=== PATIENT | female | born 1950 | race Caucasian/White ===

== ENCOUNTER 2018-05-18 16:37 | Inpatient (IN) | payer OTHER ==
[~2018-05-18] VITALS: Ht 162.6 cm; Wt 50.8 kg
[2018-05-18] MEDS ORDERED: CARV3.1242 PO (16:41)
[2018-05-18] MEDS ORDERED: SODIUM CHLORIDE 0.9% 1000ML BAG (SEPSIS BOLUS) IV ONE (17:15)
[2018-05-18 18:48] LABS: CLARITY URINE CLOUDY (CLEAR); COLOR URINE DARK YELLOW (YELLOW); KETONES URINE 3+ (NEGATIVE); LEUKOCYTE ESTERASE URINE 1+ (NEGATIVE); NITRITE URINE POSITIVE (NEGATIVE); OCCULT BLOOD URINE NEGATIVE (NEGATIVE); PH URINE 5.5 (4.5-8.0); PROTEIN URINE TRACE (NEGATIVE); SPECIFIC GRAVITY URINE 1.023 (1.005-1.030)
[2018-05-18 18:49] LABS: INR 1.2; PROTHROMBIN TIME 11.6 sec (9.1-11.1)
[2018-05-18 18:52] LABS: HEMOGLOBIN. 13.4 g/dL (12.0-16.0); MEAN CORPUSCULAR HEMOGLOBIN 29.8 pg (28.0-32.0); PLATELET 241 x1000/uL (130-400); RED BLOOD CELL COUNT 4.51 mill/uL (4.2-5.4); RED CELL DISTRIBUTION WIDTH 16.8 % (11.6-14.6)
[2018-05-18 18:56] LABS: CHLORIDE 104 mEq/L (98-107)
[2018-05-18] MEDS ORDERED: CEFTRIAXONE 1 G PREMIX 50 ML IV ONE (19:00)
[2018-05-18 19:48] LABS: PLATELET ESTIMATE NORMAL
[2018-05-18 22:00] VITALS: BP 125/79
[2018-05-18] MEDS ORDERED: SODIUM CHLORIDE 0.9% 1,000 ML IV SCH (23:12)
[2018-05-18] MEDS ORDERED: ACETAMINOPHEN 325MG TABLET PO PRN (23:15)
[2018-05-18] MEDS ORDERED: CEFTRIAXONE 1,000 MG in DEXTROSE 5% WATER 50 ML IV SCH (23:15)
[2018-05-18] MEDS ORDERED: LORAZEPAM 2MG/ML CPJ IV PRN (23:15)
[2018-05-18] MEDS ORDERED: ONDANSETRON HCL 4MG/2ML INJ IV PRN (23:15)
[2018-05-18] MEDS ORDERED: HYDROMORPHONE HCL/PF 2MG/ML CPJ IV PRN (23:15)
[2018-05-18] MEDS ORDERED: ENOXAPARIN 40MG/0.4ML SYR SUBCUT SCH (23:30)
[2018-05-19] VITALS: BP 106/69
[2018-05-19] MEDS ORDERED: LEVOFLOXACIN 500MG PREMIX 100 ML IV NR (01:00)
[2018-05-19 04:00] VITALS: BP 124/80
[2018-05-19 08:00] VITALS: BP 143/89
[2018-05-19 12:00] VITALS: BP 122/79
[2018-05-19 13:35] LABS: BASOPHILS % 0.9 % (0.0-2.0); EOSINOPHILS % 0.6 % (0.0-5.0); HEMATOCRIT. 36.8 % (36.0-48.0); HEMOGLOBIN. 12.1 g/dL (12.0-16.0); LYMPHOCYTES % 15.5 % (20.0-50.0); MEAN CORPUSCULAR HEMOGLOBIN 30.3 pg (28.0-32.0); MEAN PLATELET VOLUME 9.4 fl (7.4-10.4); MONOCYTES % 14.7 % (2.0-8.0); NEUTROPHILS % 68.3 % (40.0-76.0); PLATELET 194 x1000/uL (130-400)
[2018-05-19 13:44] LABS: CHLORIDE 111 mEq/L (98-107)
[2018-05-19 13:50] LABS: PHOSPHORUS 2.1 mg/dL (2.5-4.9)
[2018-05-19 13:52] LABS: CREATINE KINASE 253 IU/L (26-192)
[2018-05-19 13:55] LABS: CREATINE KINASE MB FRACTION < 1.0 ng/mL (0.5-3.6)
[2018-05-19 14:23] VITALS: BP 122/79
[2018-05-19] MEDS ORDERED: CEFTRIAXONE 1 G PREMIX 50 ML IV SCH (18:00)
[2018-05-19] MEDS ORDERED: LEVOFLOXACIN 250MG PREMIX 50 ML IV SCH (21:00)
== END 2018-05-19 15:08 | disposition home or self-care (01) | DRG 689 ==
LOC: ER 16:37 → EDBEDREQSVC 19:25 → EDBEDREQTM 19:25 → EDBEDREQ 19:25 → ENRESERV 20:27 → 8WST 21:30
PROVIDERS: ADMIT Internal Medicine Nephrology; ATTEND Internal Medicine Nephrology
DX: N39.0 Urinary tract infection, site not specified (principal); G92 Toxic encephalopathy; C79.31 Secondary malignant neoplasm of brain; C43.9 Malignant melanoma of skin, unspecified; F03.90 Unspecified dementia, unspecified severity, without behavioral disturbance, psychotic disturbance, mood disturbance, and anxiety; C50.919 Malignant neoplasm of unspecified site of unspecified female breast; Z85.3 Personal history of malignant neoplasm of breast
CPT/HCPCS: 36415; 71045; 80048; 82550; 82553; 83605; 83735; 84100; 84145; 84484; 87077; 87186; 93005; 96365; 96366; 99291; J0696; J1650; J1956; J7030